=== PATIENT | female | born 1945 | race Caucasian/White ===

== ENCOUNTER 2017-11-11 12:06 | Emergency (ER) | payer OTHER ==
[2017-11-11] MEDS: SOD CHLORIDE 0.9% 1,000 ML IV (12:33)
[2017-11-11 12:37] LABS: ADD MAN DIFF? NO
[2017-11-11 12:46] LABS: ABNORMAL IP MESSAGE 1; BASOPHILS % 0.2 % (0.0-2.0); EOSINOPHILS # 0.1 10^3/ul (0.0-0.5); EOSINOPHILS % 0.2 % (0.0-7.0); HEMATOCRIT 41.8 % (37.0-47.0); HEMOGLOBIN 15.6 g/dl (12.0-16.0); LYMPHOCYTES # 1.2 10^3/ul (0.8-2.9); LYMPHOCYTES % 4.9 % (15.0-51.0); MEAN CORPUSCULAR HEMOGLOBIN 29.4 pg (29.0-33.0); MEAN CORPUSCULAR HGB CONC 37.3 g/dl (32.0-37.0); MEAN CORPUSCULAR VOLUME 78.7 fl (82.0-101.0); MEAN PLATELET VOLUME 10.2 fl (7.4-10.4); MONOCYTE # 1.7 10^3/ul (0.3-0.9); MONOCYTES % 7.4 % (0.0-11.0); NEUTROPHIL # 20.3 10^3/ul (1.6-7.5); NEUTROPHILS % 86.5 % (39.0-77.0); PLATELET COUNT 406 10^3/UL (140-415); RED BLOOD COUNT 5.31 10^6/ul (4.20-5.40); RED CELL DISTRIBUTION WIDTH 12.3 % (11.5-14.5)
[2017-11-11 12:46] LABS: WHITE BLOOD COUNT 23.5 10^3/ul (4.8-10.8)
[2017-11-11 12:51] LABS: POSITIVE DIFF @See below
[2017-11-11 13:03] LABS: ALANINE AMINOTRANSFERASE 41 IU/L (13-69); ALBUMIN 4.2 g/dl (3.3-4.9); ALKALINE PHOSPHATASE 123 IU/L (42-121); ANION GAP 19 (8-16); ASPARTATE AMINO TRANSFERASE 56 IU/L (15-46); BILIRUBIN,INDIRECT 1.4 mg/dl (0-1.1); BILIRUBIN,TOTAL 1.4 mg/dl (0.2-1.3); BLOOD UREA NITROGEN 18 mg/dl (7-20); CALCIUM 9.8 mg/dl (8.4-10.2); CARBON DIOXIDE 28 mmol/L (21-31); CHLORIDE 71 mmol/L (97-110); GLUCOSE 155 mg/dl (70-220); POTASSIUM 3.1 mmol/L (3.5-5.1)
[2017-11-11 13:07] LABS: SODIUM 115 mmol/L (135-144)
[2017-11-11 13:12] LABS: TROPONIN-I 0.022 ng/ml (0.000-0.120)
[2017-11-11 13:29] LABS: ACETONE NEGATIVE (NEGATIVE)
[2017-11-11 13:39] LABS: ADD UMIC YES; UR ASCORBIC ACID 20 mg/dL (NEGATIVE); UR BACTERIA FEW /HPF (NONE SEEN); UR BILIRUBIN (Dip) NEGATIVE (NEGATIVE); UR BLOOD (Dip) NEGATIVE (NEGATIVE); UR CLARITY CLOUDY (CLEAR); UR COLOR YELLOW (YELLOW); UR GLUCOSE (Dip) NEGATIVE (NEGATIVE); UR KETONES (Dip) NEGATIVE (NEGATIVE); UR LEUKOCYTE ESTERASE (Dip) 3+ Leu/ul (NEGATIVE); UR NITRITE (Dip) NEGATIVE (NEGATIVE); UR RBC 1 /HPF (0-5); UR SPECIFIC GRAVITY (Dip) 1.008 (1.003-1.030); UR TOTAL PROTEIN (Dip) NEGATIVE (NEGATIVE); UR UROBILINOGEN (Dip) 1+ mg/dL (NEGATIVE); UR WBC > 182 /HPF (0-5)
[2017-11-11] MEDS: PIPER-TAZO 3.375 GM IV (PMX) 100 ML IVPB (14:39)
[2017-11-11] MEDS: CIPROFLOXACIN 400MG/D5W 200 ML IVPB (15:09)
== END 2017-11-11 19:30 | disposition short-term general hospital (02) ==
LOC: E/R 12:06
DX: N30.00 Acute cystitis without hematuria (principal); E87.1 Hypo-osmolality and hyponatremia; D72.829 Elevated white blood cell count, unspecified; J44.9 Chronic obstructive pulmonary disease, unspecified
CPT/HCPCS: 36415; 71045; 80053; 81001; 82010; 82962; 83605; 84484; 85025; 87040; 87086; 93005; 96374; 96375; 99285-25